=== PATIENT | female | born 1970 | race Caucasian/White ===

== ENCOUNTER 2018-06-03 14:23 | Inpatient (IN) | payer OTHER, MEDICAID ==
[~2018-06-03] VITALS: Ht 165.1 cm; Wt 74.8 kg
[~2018-06-03 14:23] MED LIST: BACL10TA PO; BUPR300T55 PO; CARB200T8 PO; LUBI24CA5 PO; LYR50 PO; OLAN20TA17 PO; OMEP20CA10 PO; PRAZ2CAP2 PO; QUET400T PO; ZOLP10TA2 PO
[2018-06-03 14:29] VITALS: BP_SYST 102
--- NOTE | 2018-06-03 14:31 | NUR ---
Patient to ER bed 08 to gown for evaluation. Side rails up.
--- NOTE | 2018-06-03 14:35 | NUR ---
Pt AAOx4 BIB BLS c/o vomiting x 1 month accompaning decreased appetite, weight loss, and bilateral lower extremity edema. New onset mid abdominal pain today. Pain exacerbated upon palpation. Pt reports vomiting everytime she has any food or liquid intake. Last meal x 1 month ago. No other injuries/complaints per pt/noted. Will continue to monitor.
[2018-06-03] MEDS ORDERED: CARB400T PO (14:38)
[2018-06-03] MEDS ORDERED: MORP15TA PO (14:38)
[2018-06-03] MEDS ORDERED: BENZ0.5T3 PO (14:38)
[2018-06-03] MEDS ORDERED: BUPR-120 PO (14:38)
[2018-06-03] MEDS ORDERED: DICL100G19 TP (14:38)
--- NOTE | 2018-06-03 14:38 | NUR ---
Medication reconciliation completed with information provided by pt. Any prior medication reconciliation on file was reviewed and corrected.
[2018-06-03] MEDS ORDERED: ONDANSETRON HCL 4 MG/2 ML VIAL IVP ONE ×2 (14:45→16:00)
[2018-06-03] MEDS ORDERED: NACL 0.9% 1,000 ML IV ONE (14:45)
--- NOTE | 2018-06-03 15:00 | NUR ---
RADIOLOGY AT BEDSIDE
--- NOTE | 2018-06-03 15:02 | NUR ---
Pt states she is unable to urinate, but will attempt after receiving fluids
[2018-06-03 15:09] LABS: CALCIUM 7.2 mg/dL (8.4-11.0); CREATININE 0.53 mg/dL (0.55-1.30); POTASSIUM 3.1 mmol/L (3.5-5.1)
[2018-06-03 15:11] LABS: HEMATOCRIT 38.5 % (36-48); HEMOGLOBIN 12.9 g/dL (12.0-16.0); MEAN CORPUSCULAR HEMOGLOBIN 34 pg (27-31); MEAN CORPUSCULAR HGB CONC 33 % (32-36); MEAN CORPUSCULAR VOLUME 100 fL (79.0-98.0); PLATELET COUNT (AUTO) 298 K/uL (130-430); RED BLOOD CELL COUNT(AUTO) 3.84 MIL/uL (4.2-6.2); RED CELL DISTRIBUTION WIDTH 15.5 % (9.0-15.0); WHITE BLOOD COUNT (AUTO) 5.3 K/uL (4.8-10.8)
[2018-06-03 15:14] LABS: ALBUMIN 1.6 g/dL (3.4-4.8); INR 1.3 (0.8-1.2); PROTHROMBIN TIME 13.1 SECS (9.5-12.5); TOTAL BILIRUBIN 3.2 mg/dL (0.0-1.0)
[2018-06-03] MEDS ORDERED: KCL 10 mEq in 50 mL (PREMIX) 50 ML IV ONE (15:30)
[2018-06-03] MEDS ORDERED: POTASSIUM CHLORIDE 20 MEQ/PKT PACKET PO ONE (15:30)
[2018-06-03 15:43] LABS: ATYPICAL LYMPHOCYTES % 0 % (0-0); BAND % (MANUAL) 23 % (0-6)
[2018-06-03 15:44] LABS: BASOPHILS % (MANUAL) 0 % (0-2); EOSINOPHILS % (MANUAL) 0 % (0-7)
[2018-06-03 15:51] LABS: LYMPHOCYTES % (MANUAL) 28 % (20-46); MONOCYTES % (MANUAL) 8 % (0-11)
[2018-06-03] MEDS ORDERED: MORPHINE 4 MG/ML INJ. SYRINGE IVP ONE (16:00)
[2018-06-03] MEDS ORDERED: NS 500 ML IV ONE (16:00)
--- NOTE | 2018-06-03 16:51 | NUR ---
Ultrasound at bedside
[2018-06-03] MEDS ORDERED: PIPERACILLIN/TAZOBACTAM 2.25 GM in NS 50 ML IV ONE (17:15)
[2018-06-03] MEDS ORDERED: VANCOMYCIN HCL 1,000 MG in NS 250 ML IV ONE (17:15)
[2018-06-03] MEDS ORDERED: VANCOMYCIN HCL 1000 MG/VIAL IV ONE (17:30)
[2018-06-03] MEDS ORDERED: PIPERACILLIN/TAZOBACTAM 2.25 GM VIAL IV ONE (17:30)
--- NOTE | 2018-06-03 17:34 | NUR ---
Lab at bedside for blood culture
[2018-06-03] MEDS ORDERED: KCL 20 mEq in D5/0.45NS 1000mL 1,000 ML IV SCH ×2 (17:45→23:45)
--- NOTE | 2018-06-03 18:00 | NUR ---
ADMISSION NOTE Received patient from ER via marcin, received report from Leslye CASTILLO. Patient admitted with diagnosis of Acute gastroentritis, possible hepatitis. Patient oriented to hospital routine, call light, toileting and safety-patient verbalized understanding.
--- NOTE | 2018-06-03 18:02 | NUR ---
GI consult called: for Dr. Jasmine ( animal taxonomist Benjamin), regarding gastroenteritis, ordered by Dr. Brower, spoke with Dennise.
--- NOTE | 2018-06-03 18:12 | NUR ---
Patient will be admitted to [facility]. Admitted to Medsurg unit. Will go to room 102A. Belongings list completed. Summary report printed. Report will be given at bedside.
[2018-06-03 18:13] VITALS: BP_SYST 127
--- NOTE | 2018-06-03 19:27 | NUR ---
Initial PM Note Pt was received in bed fully AAO x4. No c/o pain or discomfort at this time. IVF is infusing well in RH without any signs of infiltration. Fall and safety precautions are in place. Call light is with pt and bed alarm is on. Bed is in the lowest and locked positions. Pt was instructed to call for assistance as needed and pt verbalized understanding.
[2018-06-03 20:00] VITALS: BP_SYST 108
--- NOTE | 2018-06-03 20:25 | NUR ---
Vomiting Pt vomited small amount of yellowish liquid and requested medication. Pt informed MD will be paged.
--- NOTE | 2018-06-03 20:26 | NUR ---
paged paged for Dr Donahue, dialed . s/w Claudia.
--- NOTE | 2018-06-03 21:00 | NUR ---
Pt was seen by Dr. Donahue.
--- NOTE | 2018-06-03 21:15 | NUR ---
Vomiting Zofran 4mg was given IV as ordered by Dr. Donahue with relief.
[2018-06-03] MEDS ORDERED: ONDANSETRON HCL 4 MG/2 ML VIAL ONE (21:18)
[2018-06-03] MEDS ORDERED: ZOLPIDEM TARTRATE 5 MG TABLET PO PRN (21:30)
[2018-06-03] MEDS ORDERED: ONDANSETRON HCL 4 MG/2 ML VIAL IVP SCH (21:30)
--- NOTE | 2018-06-04 | NUR ---
Rounds Pt is sleeping comfortably in bed. IVF is infusing well in RH. Fall and safety precautions are in place.
[2018-06-04 00:31] VITALS: BP_SYST 109
[2018-06-04] MEDS ORDERED: ONDANSETRON HCL 4 MG/2 ML VIAL IVP PRN (01:00)
--- NOTE | 2018-06-04 02:30 | NUR ---
Incontinence/Wound Care Pt was incontinent of large amount of soft and watery stool. Edie care was given and sacral wound dressing was changed. Wound is pinkish and small amount of pinkish drainage noted. No odor noted. Wound was cleansed with normal saline and pat dried, followed by z guard and sacral foam dressing.
--- NOTE | 2018-06-04 04:00 | NUR ---
Rounds Pt is sleeping comfortably in bed. IVF is infusing well in RH. Fall and safety precautions are in place. Call light is with pt.
--- NOTE | 2018-06-04 05:30 | NUR ---
Incontinence/Wound Care Pt was incontinent of small amount of watery brownish stool. Edie care was given and sacral wound dressing was changed. Wound is pinkish and small amount of pinkish drainage noted. No odor noted. Wound was cleansed with normal saline and pat dried, followed by z guard and sacral foam dressing.
--- NOTE | 2018-06-04 06:44 | NUR ---
Closing Note Pt is awake and resting comfortably in bed. Fall and safety precautions are in place. All pt's needs were attended to. No fall or injury noted this shift. IVF is infusing well in RH. Will endorse to day shift nurse.
[2018-06-04] MEDS ORDERED: OMEPRAZOLE 20 MG CAPSULE.DR (PriLOSEC) PO SCH (07:00)
--- NOTE | 2018-06-04 07:44 | NUR ---
OPENING NOTE PT AWAKE WATCHING TV, NO DISTRESS NOTED. REORIENTED TO CALL LIGHT USE, BED IN LOWEST POSITION, WITH BED ALARM IN PLACE.
[2018-06-04] MEDS ORDERED: LUBIPROSTONE 24 MCG CAPSULE PO SCH (08:00)
[2018-06-04 08:26] VITALS: BP_SYST 63
[2018-06-04] MEDS ORDERED: EPINEPHrine JECT 1 MG/10 ML SYR IVP ONE (08:43)
[2018-06-04] MEDS ORDERED: PREGABALIN 25 MG CAPSULE (LYRICA) PO SCH (09:00)
[2018-06-04] MEDS ORDERED: BACLOFEN 10 MG TABLET PO SCH (09:00)
[2018-06-04] MEDS ORDERED: QUEtiapine FUMARATE 100 MG TABLET PO SCH (09:00)
[2018-06-04] MEDS ORDERED: MORPHINE SULFATE 30 MG Immediate Release TABLET PO SCH (09:00)
[2018-06-04] MEDS ORDERED: buPROPion HCL 150 MG XL TAB PO SCH ×2 (09:00)
--- NOTE | 2018-06-04 09:00 | NUR ---
RT Note: 0826 Responded to code blue. Upon arrival, CPR was already in progress. Proceeded to head of the bed with ambu bag and ventilated pt. 0835 Pt was successfully intubated by Dr. Bradley on second attempt. 0844 Pt was pronounced by Dr. Bradley at this time.
--- NOTE | 2018-06-04 09:14 | NUR ---
PAGED AND CALLED ATTENDING MD DR HALL, RE: REPORT OF PT'S DEMISE.
--- NOTE | 2018-06-04 09:18 | NUR ---
SARAHI DOUGLAS WEATHERIZATION OPERATIONS MANAGER DR Elizabeth WRIGHT WAS CALLED, TO INFORM OF PT'S @ [phone]. SPOKE TO AKANKSHA.
--- NOTE | 2018-06-04 09:42 | NUR ---
[facility] Department of measurement technician called contacted by Fang [place]. spoke with Falguni.
--- NOTE | 2018-06-04 09:51 | NUR ---
pt was with family at bedside this morning, upon entering the room pt was nonresponsive and not breathing heart rate was 25 bpm then went down to zero cpr was started and code abbie was called. physickristen called time of at 0844
--- NOTE | 2018-06-04 09:59 | NUR ---
[employer] Roll [employer] Operator Note NURSE PRACTITIONER ADULT attended [facility] Betancourt. Remained with patient's daughter, Denise, and offered support. The patient . NURSE PRACTITIONER ADULT stayed with patient's daughter and met patient's son in the entrance. NURSE PRACTITIONER ADULT explained that the fisher spear was called and would not be conducting an autopsy. Denise stated that after talking with family on the phone, they did not want to request an autopsy. Multiple family members arrived. NURSE PRACTITIONER ADULT offered support and provided Denise with the list of mortuaries. [employer] Roll [employer] Operator will remain available. Addendum: 06/04/18 at 1145 by Jackie Lombardo LCSW HUNTER has visited the family periodically. All family members who wished to see patient have arrived. [facility] Daughter, Denise, is on the phone making arrangements. She will notify the nurses' station when patient will be picked up by [facility].
--- NOTE | 2018-06-04 10:24 | NUR ---
Nutrition Update Dom Scale 16 noted. Pt admitted for acute gastroenteritis, possible hepatitis. Diet: clear liquid BMI: 27.5 kg/m2 RD to follow per nutrition care standards.
[2018-06-04] MEDS ORDERED: OLANZapine 10 MG TABLET PO SCH (21:00)
[2018-06-04] MEDS ORDERED: PRAZOSIN HCL 1 MG CAPSULE PO SCH (21:00)
[2018-06-05 07:06] LABS: HEPATITIS A AB, IgM Negative (Negative); HEPATITIS B CORE AB, IgM Negative (Negative); HEPATITIS B SURFACE AG Negative (Negative)
== END 2018-06-04 08:44 | disposition expired | DRG 441 ==
LOC: SED 14:23 → SMU 17:31
PROVIDERS: ADMIT Family Medicine; ATTEND Family Medicine
PROC: 5A12012 Performance of Cardiac Output, Single, Manual (ICD-10-PCS; principal; 2018-06-04)
DX: K72.00 Acute and subacute hepatic failure without coma (principal); E43 Unspecified severe protein-calorie malnutrition; E87.1 Hypo-osmolality and hyponatremia; K21.9 Gastro-esophageal reflux disease without esophagitis; F31.9 Bipolar disorder, unspecified; G89.29 Other chronic pain; I46.9 Cardiac arrest, cause unspecified; Z88.8 Allergy status to other drugs, medicaments and biological substances; Z79.899 Other long term (current) drug therapy; Z98.84 Bariatric surgery status; Z90.710 Acquired absence of both cervix and uterus; Z68.27 Body mass index [BMI] 27.0-27.9, adult
CPT/HCPCS: 36415; 71045; 76700-TC; 80053; 80074; 82962; 83605; 83690-TC; 83880; 84484; 85007; 85027; 85610-TC; 85730-TC; 87040-TC; 90656; 93005; 96361; 96365; 96367; 96368; 96375; 99285; J0171; J2270; J2405; J2543; J3370; J3480; J7030